=== PATIENT | female | born 2000 | race Caucasian/White ===

== ENCOUNTER 2021-08-02 09:28 | Emergency (ER) | payer BC, OTHER ==
--- NOTE | 2021-08-02 09:53 | ERPHSYRPT ---
- History of Present Illness Time Seen by Provider: 08/02/21 09:40 Source: patient Exam Limitations: no limitations Patient Subjective Stated Complaint: Back pain Triage Nursing Assessment: Patient ambulated back to ED and transferred self to bed. Patient A+O X3. Patient's skin pink, warm and dry. Patient complains of lower mid back pain 07/03. Patient states she was sitting on the toilet at work when she went to reach down for the toilet paper her back gave out and she went foward. Patient states she was unable to get up for one hour due to the pain. No visible injuries or bruising noted. Physician History: This is a 21-year-old obese white female who has no medical issues and is not on any medication and presents with acute onset of bilateral lower back pain with the left side worse than the right in the paraspinous muscle regions. Patient was using the restroom and she reached down and forward to obtain the toilet paper when there was a pulling sensation with pain in the above stated area. Patient has had pain ever since. Patient was brought into the emergency department by family member. She was able to ambulate and transfer in the room. She has no urinary symptoms. She has no numbness in her feet or legs. She has no urinary incontinence or bowel incontinence. She has no chronic back pain issues. She has no known drug allergies. Patient did not fall or experiencing any traumatic injury to her back Timing/Duration: today Method of Injury: bending, twisted Quality: sharp, stabbing Back Pain Location: lumbar spine, paraspinous muscles (Left side worse than right) Severity of Pain-Max: moderate Severity of Pain-Current: mild (To moderate) Modifying Factors: Improves With: movement Associated Symptoms: lower back pain, muscle spasms, No urinary incontinence, No loss of bowel control, No constipation, No numbness in legs/feet Previous symptoms: no prior history Allergies/Adverse Reactions: No Known Drug Allergies Allergy (Unverified 08/02/21 09:31) Hx Influenza Vaccination/Date Given: Yes Hx Pneumococcal Vaccination/Date Given: No Immunizations Up to Date: Yes Travel Risk - International Travel Have you traveled outside of the country in past 3 weeks: No - Coronavirus Screening Are you exhibiting any of the following symptoms?: No Close contact with a COVID-19 positive Pt in past 14-21 Days: No - Vaccine Status Have you recieved a Covid-19 vaccination: No - Review of Systems Constitutional: No Symptoms Eyes: No Symptoms Ears, Nose, & Throat: No Symptoms Respiratory: No Symptoms Cardiac: No Symptoms Abdominal/Gastrointestinal: No Symptoms Genitourinary Symptoms: No Symptoms Musculoskeletal: Back Pain Skin: No Symptoms Neurological: No Symptoms Psychological: No Symptoms Endocrine: No Symptoms Hematologic/Lymphatic: No Symptoms Immunological/Allergic: No Symptoms All Other Systems: Reviewed and Negative - Past Medical History Pertinent Past Medical History: No Neurological History: No Pertinent History ENT History: No Pertinent History Cardiac History: No Pertinent History Respiratory History: No Pertinent History Endocrine Medical History: No Pertinent History Musculoskeletal History: No Pertinent History GI Medical History: No Pertinent History History: No Pertinent History Psycho-Social History: No Pertinent History Female Reproductive Disorders: No Pertinent History - Past Surgical History Past Surgical History: Yes Neuro Surgical History: No Pertinent History Cardiac: No Pertinent History Respiratory: No Pertinent History Gastrointestinal: No Pertinent History Genitourinary: No Pertinent History Musculoskeletal: No Pertinent History Female Surgical History: Section - Social History Smoking Status: Never smoker Exposure to second hand smoke: No Drug Use: none Patient Lives Alone: No - Female History Hx Last Menstrual Period: one month ago Hx Now: No - Nursing Vital Signs Nursing Vital Signs: Initial Vital Signs Temperature 97.3 F 08/02/21 09:34 Pulse Rate 86 08/02/21 09:34 Respiratory Rate 18 08/02/21 09:34 Blood Pressure 152/89 08/02/21 09:34 O2 Sat by Pulse Oximetry 100 08/02/21 09:34 Pain Scale Pain Intensity 10 - Physical Exam General Appearance: no apparent distress, alert, anxiety, obese Eye Exam: PERRL/EOMI, eyes nml inspection Ears, Nose, Throat Exam: normal ENT inspection, moist mucous membranes Neck Exam: normal inspection, non-tender, supple, full range of motion Respiratory Exam: airway intact, No chest tenderness, No respiratory distress Gastrointestinal Exam: No tenderness Pelvic Exam: not done Rectal Exam: not done Back Exam: normal inspection, normal range of motion, decreased range of motion, muscle spasm, No CVA tenderness, No vertebral tenderness Extremity Exam: normal inspection, normal range of motion, pelvis stable Neurologic Exam: alert, oriented x 3, cooperative, title assistant II-XII nml as tested, normal mood/affect, nml cerebellar function, nml station & gait, sensation nml Skin Exam: normal color, warm, dry Lymphatic Exam: No adenopathy SpO2 Interpretation: normal SpO2: 100 O2 Delivery: Room Air - Course Nursing assessment & vital signs reviewed: Yes - Progress Progress: improved, pain not gone completely Counseled pt/family regarding: diagnosis, need for follow-up - Departure Departure Disposition: Home Clinical Impression: Acute low back pain Condition: Stable Critical Care Time: No Additional Instructions: Ice pack to tender areas 2-3 times a day for the next 48 hours followed by warm compresses or heating pad on low to medium setting, not directly on skin, 2 or 3 times a day. Take your medication as prescribed. Call your primary care physician/clinic today to make arrangements for follow-up appointment. Prescriptions: Prednisone 10 mg [Deltasone 10 mg] 10 mg PO TID #12 tablet Orphenadrine Citrate 100 mg [Norflex 100 MG Tablet] 100 mg PO BID #10 tab
[2021-08-02] MEDS ORDERED: solu-MEDROL 125 MG, Sterile H2O 10 ml 2 ML IM ONE ×2 (09:58)
[2021-08-02] MEDS ORDERED: Norflex 60 MG/2 ML IM ONE (09:58)
[2021-08-02] MEDS ORDERED: Norflex 60 MG/2 ML ONE (10:00)
[2021-08-02] MEDS ORDERED: solu-MEDROL ONE (10:01)
[2021-08-02] MEDS ORDERED: Sterile H2O 10 ml IJ ONE (10:01)
== END 2021-08-02 10:25 | disposition home or self-care (01) ==
LOC: ED 09:28
DX: M54.50 Low back pain, unspecified (principal)
CPT/HCPCS: 96372; 99284; J2360; J2930